=== PATIENT | male | born 1990 | race Caucasian/White ===

== ENCOUNTER 2023-08-16 16:59 | Emergency (ER) | payer MEDICAID, SELFPAY ==
[2023-08-16 17:08] VITALS: BP 129/77; PULSE 102; RESP 16; TEMP 36.2; O2SAT 99
[2023-08-16 17:23] VITALS: BP 129/77; PULSE 102; RESP 16; TEMP 36.2; O2SAT 99
--- NOTE | 2023-08-16 17:36 | PC.NURSE ---
had left exam rm x2, first time went to waiting area and when back in room asked how much longer, was aware <15 min., left room again but is outside. anothger pt here being seen stated they are together and probably went to car to charge phone.
== END 2023-08-16 17:40 | disposition left against medical advice (07) ==
LOC: EXPBETH 17:04
PROVIDERS: Emergency Provider Nurse Practitioner
DX: Z53.21 Procedure and treatment not carried out due to patient leaving prior to being seen by health care provider (principal)
CPT/HCPCS: 99199